=== PATIENT | male | born 1975 ===

== ENCOUNTER → 2022-03-17 | Outpatient (CLI) | payer MEDICARE, OTHER ==
[~2022-03-17] MED LIST: RIVA2.5T3 PO
== END | disposition home or self-care (01) ==
LOC: RADMN 13:00
PROVIDERS: ATTEND Internal Medicine Pulmonary Disease
DX: J98.11 Atelectasis (principal); M47.814 Spondylosis without myelopathy or radiculopathy, thoracic region; G71.11 Myotonic muscular dystrophy
CPT/HCPCS: 71046

== ENCOUNTER → 2022-03-17 | Outpatient (CLI) | payer MEDICARE, OTHER ==
[~2022-03-17] VITALS: Ht 188 cm; Wt 93.0 kg
[2022-03-17 11:48] VITALS: BP 115/74
== END | disposition home or self-care (01) ==
LOC: SRCNTR 11:15
PROVIDERS: ATTEND Internal Medicine Pulmonary Disease
DX: Z09 Encounter for follow-up examination after completed treatment for conditions other than malignant neoplasm (principal); G71.11 Myotonic muscular dystrophy; J96.91 Respiratory failure, unspecified with hypoxia; J98.11 Atelectasis; Z87.891 Personal history of nicotine dependence; Z86.711 Personal history of pulmonary embolism
CPT/HCPCS: G0463